=== PATIENT | female | born 1995 | race African-American/Black ===

== ENCOUNTER 2021-04-29 13:47 | Emergency (ER) | payer OTHER ==
[~2021-04-29] VITALS: Ht 170.2 cm; Wt 120.2 kg
[2021-04-29 15:18] LABS: ABSOLUTE NEUTROPHILS 4.1 thou/uL (1.4-8.2); BASOPHILS 1.6 % (0.0-2.0); EOSINOPHILS 1.4 % (0.0-3.0); HEMATOCRIT 37.1 % (37.0-47.0); HEMOGLOBIN 12.3 gm/dL (12.0-15.0); LYMPHOCYTES 33.6 % (24.0-44.0); MCHC 33.3 g/dL (28.0-37.0); MCV 81.2 fL (80.0-100.0); MONOCYTES 4.7 % (1.0-8.0); PLATELET COUNT 460 thou/uL (150-400); POLYS 58.7 % (36.0-66.0); RBC 4.57 mil/uL (4.20-5.00); RDW 14.6 % (10.5-14.5)
[2021-04-29 15:40] LABS: CALCIUM 9.1 mg/dL (8.5-10.1); POTASSIUM 4.2 mmol/L (3.5-5.1)
[2021-04-29 16:44] LABS: URINE BILIRUBIN NEGATIVE (Negative); URINE BLOOD 1+ (Negative); URINE CLARITY SL CLOUDY; URINE COLOR YELLOW; URINE GLUCOSE-RANDOM* NEGATIVE (Negative); URINE KETONES NEGATIVE (Negative); URINE NITRITE-REFLEX NEGATIVE (Negative); URINE PROTEIN (DIPSTICK) NEGATIVE (Negative); URINE SPECIFIC GRAVITY >= 1.030 (1.005-1.035); URINE UROBILINOGEN 0.2 E.U./dl (0.2-1.0)
[2021-04-29 16:54] LABS: URINE LEUKOCYTES-REFLEX 1+ (Negative)
[2021-04-29 16:56] LABS: SQUAMOUS >10 Many /LPF (0-3)
[2021-04-29 16:58] LABS: CASTS None Seen /LPF (None Seen); CRYSTALS None Seen /LPF (None Seen); URINE RBC 3-10 Few /HPF (NONE SEEN); URINE WBC-REFLEX 6-15 Few /HPF (0-5)
[2021-04-29] MEDS ORDERED: CEPHALEXIN500 MG PO (17:59)
[2021-04-29 18:14] VITALS: BP 118/68
== END 2021-04-29 18:15 | disposition home or self-care (01) ==
LOC: ER 13:47
PROVIDERS: Nurse Practitioner
DX: N39.0 Urinary tract infection, site not specified (principal); Z90.49 Acquired absence of other specified parts of digestive tract; Z88.8 Allergy status to other drugs, medicaments and biological substances

== ENCOUNTER 2021-06-18 23:51 | Emergency (ER) | payer OTHER ==
[~2021-06-18] VITALS: Ht 170.2 cm; Wt 121.6 kg
[~2021-06-18 23:51] MED LIST: CEPHALEXIN500 MG PO
[2021-06-18 23:53] VITALS: BP 129/88
[2021-06-19] MEDS ORDERED: APAP W/CODEINE1 TA2 PO (00:29)
== END 2021-06-19 01:24 | disposition home or self-care (01) ==
LOC: ER 23:51
DX: L02.411 Cutaneous abscess of right axilla (principal); Z90.49 Acquired absence of other specified parts of digestive tract; Z88.8 Allergy status to other drugs, medicaments and biological substances

== ENCOUNTER 2021-06-25 00:08 | Emergency (ER) | payer OTHER ==
[~2021-06-25] VITALS: Ht 170.2 cm; Wt 122.5 kg
[~2021-06-25 00:08] MED LIST changes: +APAP W/CODEINE1 TA2 PO
[2021-06-25 00:12] VITALS: BP 142/88
[2021-06-25] MEDS ORDERED: CEPHALEXIN500 MG PO (00:48)
== END 2021-06-25 01:00 | disposition home or self-care (01) ==
LOC: ER 00:08
DX: L03.111 Cellulitis of right axilla (principal); Z90.49 Acquired absence of other specified parts of digestive tract; Z88.8 Allergy status to other drugs, medicaments and biological substances